=== PATIENT | female | born 2000 | race Caucasian/White ===

== ENCOUNTER 2019-12-09 23:49 | Emergency (ER) | payer OTHER ==
[~2019-12-09] VITALS: Ht 162.6 cm; Wt 59.0 kg
[2019-12-10] MEDS ORDERED: PRENATAL TABLE1 EAC2 PO (00:05)
== END 2019-12-10 00:10 | disposition home or self-care (01) ==
LOC: ER 23:49
DX: O99.891 Other specified diseases and conditions complicating pregnancy (principal); M25.512 Pain in left shoulder; Z3A.10 10 weeks gestation of pregnancy; V47.5XXA Car driver injured in collision with fixed or stationary object in traffic accident, initial encounter; Y92.411 Interstate highway as the place of occurrence of the external cause
CPT/HCPCS: 99284